=== PATIENT | male | born 1945 | race Caucasian/White ===

== ENCOUNTER 2017-01-21 00:31 | Day surgery (SDC) | payer MEDICARE, OTHER ==
[~2017-01-21] VITALS: Ht 188 cm; Wt 102.0 kg
[2017-01-21] VITALS (12 sets, daily range): BP systolic 110–124; BP diastolic 60–73; PULSE 75–78; RESP 16–18; O2SAT 95–97
[~2017-01-21 00:31] MED LIST: CLOP75TA28 PO; FINA5TAB9 PO; LAN125 PO; LISI-571 PO; METO100T3 PO; SIMV40TA5 PO; TERA10CA5 PO; WARF2.5T82 PO
[2017-01-21] MEDS ORDERED: Vancomycin 1 Gm/200 mL NS Premix IV ONE (07:40)
[2017-01-21] MEDS: 0.9% Sodium Chloride 1,000 ML IV SCH ×2 (12:00→22:22)
[2017-01-21 12:34] LABS: BASOPHILS % (AUTO) 0.2 % (0-3); MONOCYTES % (AUTO) 9.3 % (4-12); Mean Corpuscular Hemoglobin 29.7 pg (27.0-35.0); Mean Corpuscular Volume 90.5 fL (81-100); NEUTROPHILS % (AUTO) 67.2 % (40-74); Platelet Count 209 bil/L (150-400)
[2017-01-21] MEDS ORDERED: METO200T32 PO (12:39)
[2017-01-21 12:51] LABS: INR 1.49 ratio
[2017-01-21] MEDS ORDERED: Heparin 1,000 Unit/mL 10 mL Inj ONE (13:22)
[2017-01-21] MEDS ORDERED: Heparin 5,000 Units/500 mL NS Premix IV ONE (13:22)
[2017-01-21] MEDS ORDERED: Vancomycin 1,000mg/200 mL NS IV ONE (13:23)
[2017-01-21] MEDS ORDERED: Heparin 10,000 Unit/1,000 mL NS Premix IV ONE (13:23)
[2017-01-21] MEDS ORDERED: fentaNYL-PF 50 mCg/mL 2 mL Inj ONE ×2 (13:57→15:39)
[2017-01-21] MEDS ORDERED: Heparin 1,000 Unit/1,000mL NS Premix IV ONE (15:54)
[2017-01-21] MEDS ORDERED: Ondansetron 2 mg/mL 2 mL Inj IVPUSH PRN (16:55)
[2017-01-21] MEDS ORDERED: HYDROcodone-APAP 5-325 mg Tablet PO PRN (16:55)
[2017-01-22 03:34] VITALS: BP 105/67; PULSE 75; RESP 17; O2SAT 97
[2017-01-22] MEDS: 0.9% Sodium Chloride 1,000 ML IV SCH (05:09)
--- NOTE | 2017-01-22 06:43 | NUR ---
Cardiac Pt arrived from [facility] to [facility] # 2006 approx at 2009 post ablation procedure. Pt denies CP throughout. VSS. Right groin site without apparent complications. Up to BR and tolerated well.
[2017-01-22 07:52] VITALS: BP 109/52; PULSE 75; RESP 12; O2SAT 95
--- NOTE | 2017-01-22 08:48 | PROCED ---
[address] [address] PROCEDURE NOTE PATIENT: MARLENA ASHRAF : 1945 MR#: [id number] ADMIT: 01/21/2017 JOB ID: [id number] DATE OF SERVICE: 01/21/2017 PREOPERATIVE DIAGNOSIS(ES): 1. Rapid atrial fibrillation. 2. Biventricular internal cardioverter-defibrillator in place. 3. Severe cardiomyopathy. POSTOPERATIVE DIAGNOSIS(ES): 1. Rapid atrial fibrillation. 2. Biventricular internal cardioverter-defibrillator in place. 3. Severe cardiomyopathy. PROCEDURES PERFORMED: 1. Atrioventricular node ablation, attempted. 2. Internal cardioverter-defibrillator periprocedural programming and reprogramming. 3. Fluoroscopy. SURGEON: Braulio Brock MD. LAW ENFORCEMENT DIRECTOR: 1. Petros Curiel. 2. Lito He. ANESTHESIA: Bolus dosing of Versed and fentanyl were utilized for appropriate level of sedation. INDICATION: The patient is a pleasant 72-year-old man with severe cardiomyopathy, chronic atrial fibrillation, Bi-V ICD in place, who has had averted ICD discharges for rapid atrial fibrillation despite maximal dose beta-blockade. After discussion of risks and benefits of AV node ablation, he opted to proceed. PROCEDURAL DESCRIPTION: Following informed signed consent, the patient was taken to the EP laboratory in a fasting nonsedated state, where he was prepped and draped in the usual sterile fashion. His ICD was interrogated and tachyarrhythmia detections were turned to off. He was reprogrammed to VVI 40 beats per minute. The parameters were tested and found to be excellent. The right inguinal region was infiltrated with 1% lidocaine. Then, using the modified Seldinger technique, an 8-Tunisian sheath was inserted into the right femoral vein under fluoroscopic guidance. A J-curve irrigated ablation catheter was brought to the field and advanced to the position of the His. A multitude of lesions were placed in this region, ultimately with one leading to complete heart block. Unfortunately, he had resumption of AV conduction and despite again aggressive maneuvers for ablation of the AV node he continued to have conduction. I aborted the case at this point due to patient comfort and radiation exposure. The sheath and catheter were removed. Manual pressure was held for hemostasis. The patient was transferred to the [facility] for monitoring, bed rest. Of note, I did redeploy the ablation catheter through an SR0 long sheath for stability and was still unsuccessful. The ICD was then re-interrogated. Both RV and LV lead had excellent threshold and sensing. Tachyarrhythmia detections were turned back to on and pacing was resumed to VVIR at 75 beats per minute. COMPLICATIONS: None. ESTIMATED BLOOD LOSS: Negligible. IMPRESSION: Atrioventricular node ablation with recurrence of AV conduction. PLAN: 1. Bed rest x4 hours. 2. Continue current medication regimen. 3. Return to clinic for AV node ablation with three-dimensional mapping. ATTENDING STATEMENT: Braulio Brock MD, electrophysiology attending, was present for and supervised/performed all aspects of this procedure.
[2017-01-22 12:03] VITALS: BP 99/56; PULSE 78; RESP 18; O2SAT 92
[2017-01-22 12:15] VITALS: PULSE 77
[2017-01-22 12:24] VITALS: PULSE 78
--- NOTE | 2017-01-22 12:29 | PCM.DIMED ---
Discharge Instructions Date of Service Jan 22, 2017 Dates of Hospitalization Discharge Diagnosis Discharge Diagnosis Atrial Fibrillation with rapid ventricular response Ischemic cardiomyopathy Diet Low fat, Low Sodium, Heart Healthy Activity Other (Do not sit in bath tub or hottub for 5 days to prevent infection. Do not lift more than 10 lbs for 5 days to prevent bleeding.) Call your provider Fever or Chills, Bleeding, Excessive diarrhea Patient Instructions Mid-level Provider (F9): Clyde Stevens PA-C Follow-up with Mid-level in: 4 weeks (February 15, 2017 at [facility] Cardiology at 10: 45 (arrival time)) Clyde Stevens PA-C Jan 22, 2017 12:29
--- NOTE | 2017-01-22 13:05 | NUR ---
Discharge Pt eager to discharge this am. Discharge order placed and Pt just discharged home with family. Pt given discharge educational materials on cardiac cath and cardiac ablation. Pt verbalized that he already knew how to care for groin site, groin site stable at discharge. Pt's IV access D/C'd and intact X2. Pt instructed to f/u with cardiology, appointment cynthia for 02/15/17 at 1045, phone number supplied. Pt verbalized understanding of all discharge instructions. All belongings accompanied Pt at time of discharge.
--- NOTE | 2017-01-22 13:33 | DIS ---
[address] [address] DISCHARGE SUMMARY PATIENT: MARLENA ASHRAF : 1945 MR#: [id number] ADMIT: 01/21/2017 JOB ID: [id number] DIS: 01/22/2017 REASON FOR ADMISSION: AV node ablation. CHIEF COMPLAINT: Rapid palpitations. BRIEF HISTORY: The patient is a pleasant 72-year-old man with chronic atrial fibrillation dating back to 2008. He also has a history of an anterior OR and ischemic cardiomyopathy. His LV ejection fraction remains 25% to 30% despite medications. He received a biventricular ICD about two months ago for prevention of sudden cardiac arrest and for adjunctive therapy for heart failure management. He has continued to have atrial fibrillation with a rapid ventricular response. Despite metoprolol succinate 200 mg b.i.d. along with digoxin 0.25 mg daily. His device, although it has a high rate detect requirement, he gets a rapid ventricular response and the device has charged, but thankfully it aborted therapy and has not given him a shock yet. Plans were made for AV node ablation for rate control. COURSE IN THE HOSPITAL: The patient was admitted through the [facility] and taken to the senior label specialist, where he underwent the AV node ablation procedure. However, permanent AV block could not be achieved despite a prolonged procedure with multiple applications of RF energy. The procedure was ended due to the extensive exposure to fluoroscopy and time spent with the procedure. He was taken back to the [facility] for recovery from sedation and then transferred to the [facility] for overnight observation and telemetry monitoring. He did well. He continued to have a mixture of paced beats and spontaneously conducted beats. In the morning he had no symptom complaints of chest pain, dyspnea, or near syncope, and felt well for discharge home. DISPOSITION: The patient was discharged home in good condition, with a followup appointment at the [facility] Cardiology office in one month. Plans will be made at that time for a repeat ablation procedure. He is in the anatomic mapping system. DISCHARGE MEDICATIONS: 1. Clopidogrel 75 mg daily. 2. Digoxin 0.25 mg daily. 3. Finasteride 5 mg daily. 4. Lisinopril 2.5 mg daily. 5. Metoprolol succinate 200 mg b.i.d. 6. Simvastatin 40 mg daily. 7. Terazosin 10 mg q.h.s. 8. Warfarin 5 mg daily or as directed by his anticoagulation clinic. FINAL DIAGNOSES: 1. Ischemic cardiomyopathy. 2. Chronic atrial fibrillation with rapid response. 3. Biventricular ICD implant.
== END 2017-01-22 13:24 | disposition home or self-care (01) ==
LOC: SOUO 00:31 → PCC 18:57 → SOUO 01-22 13:24
PROVIDERS: ATTEND Internal Medicine Cardiovascular Disease
DX: I48.2 Chronic atrial fibrillation (principal); I25.5 Ischemic cardiomyopathy; Z95.810 Presence of automatic (implantable) cardiac defibrillator; I25.2 Old myocardial infarction; Z79.01 Long term (current) use of anticoagulants; Z79.02 Long term (current) use of antithrombotics/antiplatelets; I45.2 Bifascicular block; I50.9 Heart failure, unspecified; I10 Essential (primary) hypertension; F17.210 Nicotine dependence, cigarettes, uncomplicated
CPT/HCPCS: 36415; 80048; 85025; 85610; 93005; 93650; 99152; 99153; C1733; C1893; C2630; J1644; J2250; J3010; J3370; J7030